=== PATIENT | female | born 1980 | race African-American/Black ===

== ENCOUNTER 2018-08-31 17:19 | Emergency (ER) | payer OTHER, MEDICAID ==
[2018-08-31] MEDS ORDERED: ACETAMINOPHEN 325 MG TABLET PO ONE (18:16)
[2018-08-31] MEDS ORDERED: LIDOCAINE 5% (700 MG) TRANSDERMAL ADH..PATCH TP ONE (18:16)
[2018-08-31] MEDS ORDERED: IBUPROFEN 600 MG TABLET PO ONE (18:16)
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
[2018-08-31] MEDS ORDERED: METHOCARBAMOL 500 MG TABLET PO ONE (19:57)
[2018-08-31 20:21] VITALS: BP 132/81
== END 2018-08-31 20:21 | disposition home or self-care (01) ==
LOC: ER 17:19
DX: M25.512 Pain in left shoulder (principal); M25.511 Pain in right shoulder; M54.6 Pain in thoracic spine; V87.7XXA Person injured in collision between other specified motor vehicles (traffic), initial encounter; J45.909 Unspecified asthma, uncomplicated
CPT/HCPCS: 99283

== ENCOUNTER 2019-05-11 23:51 | Emergency (ER) | payer MEDICAID, OTHER ==
--- NOTE | 2019-05-12 00:56 | ER Document Report ---
ED Extremity Problem, Lower - General Chief Complaint: Knee Injury Stated Complaint: FELL KNEE PAIN Time Seen by Provider: 05/12/19 00:55 Primary Care Provider: MEIR SHEN MD [Primary Care Provider] - Follow up as needed TRAVEL OUTSIDE OF THE [place] IN LAST 30 DAYS: No - HPI Notes: 39-year-old female to the emergency department with complaints of fall and knee injury that occurred just prior to arrival. She states that she was leaving her family's home when she fell into a hole in the yard and fell forward striking her right knee on a downed branch from a tree. She states that she had immediate pain. She states that she tried to take some Motrin but without any relief. She states she took 800 mg of the Motrin. She states that she did not injure any other joints and did not strike her head. She did not have loss of consciousness. She did not have any vomiting, blurry vision, or any other injuries. She is not sure exactly how she came down onto the knee. She states that she has a lot of pain when she flexes the knee and anytime she tries to bear weight. - Related Data Allergies/Adverse Reactions: No Known Allergies Allergy (Verified 08/31/18 17:21) Past Medical History - General Information source: Patient - Social History Smoking Status: Never Smoker Frequency of alcohol use: None Drug Abuse: None Family History: Reviewed & Not Pertinent Pulmonary Medical History: Reports: Hx Asthma Denies: Hx Tuberculosis Renal/ Medical History: Denies: Hx Peritoneal Dialysis Psychiatric Medical History: Reports: Hx Anxiety, Hx Depression Infectious Medical History: Reports: Hx MRSA Past Surgical History: Reports: Hx Cholecystectomy, Hx Orthopedic Surgery - right knee - Immunizations Immunizations up to date: Yes Hx Diphtheria, Pertussis, Tetanus Vaccination: Yes Review of Systems - Review of Systems Constitutional: denies: Chills, Fever EENT: No symptoms reported Cardiovascular: denies: Chest pain, Palpitations, Orthopnea, Dyspnea, Syncope, Dizziness, Lightheaded Respiratory: denies: Cough, Short of breath Gastrointestinal: denies: Abdominal pain, Diarrhea, Nausea, Vomiting Musculoskeletal: See HPI, Joint pain, Muscle pain Skin: See HPI - Abrasion to right knee Neurological/Psychological: denies: Lost consciousness, Headaches -: Yes All other systems reviewed and negative Physical Exam - Vital signs Vitals: Temp Pulse Resp BP Pulse Ox 97.4 F 81 17 116/80 99 05/11/19 23:57 05/11/19 23:57 05/11/19 23:57 05/11/19 23:57 05/11/19 23:57 Interpretation: Normal - General General appearance: Appears well, Alert In distress: None - HEENT Head: Normocephalic, Atraumatic Eyes: Normal Pupils: PERRL - Respiratory Respiratory status: No respiratory distress Chest status: Nontender Breath sounds: Normal Chest palpation: Normal - Cardiovascular Rhythm: Regular Heart sounds: Normal auscultation Murmur: No - Extremities Knee: Tender - There is tenderness to palpation over the anterior knee joint of the right knee. There is mild and evolving ecchymosis to the knee. There is noted tenderness focally over the patella but is not high rising and there is no brenda deformity. There is a small abrasion with bleeding controlled overlying the patella. There is negative valgus and varus stress testing. There is negative anterior drawer. It is noted that during the exam patient does cry out of pain. She is nontender to palpation to the right hip and to the right ankle. DP pulses are intact and equal. Cap refill is less than 2 seconds., Abrasion, Ecchymosis - Neurological Neuro grossly intact: Yes Cognition: Normal Orientation: AAOx4 Rafy Coma Scale Eye Opening: Spontaneous Hester Coma Scale Verbal: Oriented Rafy Coma Scale Motor: Obeys Commands Rafy Coma Scale Total: 15 Speech: Normal Cranial nerves: Normal Motor strength normal: LUE, RUE, LLE, RLE Additional motor exam normals: Equal event executive. No: Pronator drift Sensory: Normal - Psychological Associated symptoms: Normal affect, Normal mood - Skin Skin Temperature: Warm Skin Moisture: Dry Skin Color: Normal Course - Re-evaluation Re-evalutation: 05/12/19 Knee X-Ray 05/12/19 00:00 IMPRESSION: 1. No acute findings. Impression: Right knee injury, right knee abrasion, patellar contusion. Noted x-ray findings. Patient does not appear to have any laxity in anterior drawer or in valgus and varus stress testing. She is unsure if she twisted down as she went into the hole. We will go ahead and immobilize the knee and placed on crutches to help with her pain. We will have her follow-up with Ortho. She agrees with the plan. Will write for small amount of pain medicine and sent home also with Motrin for anti-inflammatory and pain control as well. Patient agrees with the plan. - Vital Signs Vital signs: Temp Pulse Resp BP Pulse Ox 97.4 F 81 17 116/80 99 05/11/19 23:57 05/11/19 23:57 05/11/19 23:57 05/11/19 23:57 05/11/19 23:57 - Diagnostic Test Radiology reviewed: Image reviewed, Reports reviewed Discharge - Discharge Clinical Impression: Fall Qualifiers: Encounter type: initial encounter Qualified Code(s): W19.XXXA - Unspecified fall, initial encounter Patellar contusion Qualifiers: Encounter type: initial encounter Laterality: right Qualified Code(s): S80.01XA - Contusion of right knee, initial encounter Knee injury Qualifiers: Encounter type: initial encounter Laterality: right Qualified Code(s): S89.91XA - Unspecified injury of right lower leg, initial encounter Condition: Stable Disposition: HOME, SELF-CARE Instructions: Use of Crutches ([facility]), Ice & Elevation ([facility]) Additional Instructions: REST, ICE, ELEVATE THE KNEE. FOLLOW UP WITH PRIMARY CARE AND ORTHOPEDIST. RETURN IF WORSENING PAIN, FEVERS< REDNESS, SIGNIFICANT SWELLING TO THE KNEE. KEEP WOUND CLEAN AND DRY. Prescriptions: Ibuprofen [Motrin 800 mg Tablet] 800 mg PO Q8H PRN #30 tab PRN Reason: Hydrocodone/Acetaminophen [Chapman 5-325 mg Tablet] 1 tab PO Q6H #9 tablet Referrals: MEIR SHEN MD [Primary Care Provider] - Follow up in 1 week SYLVIA SIMMONS JR, DO [ACTIVE PROVISIONAL STAFF] - Follow up in 1 week
[2019-05-12] MEDS ORDERED: HYDROCODONE/ACETAMINOPHEN 5-325 MG TABLET PO ONE (01:06)
[2019-05-12] MEDS ORDERED: DIPH/PERTUSS(ACELL)/TETANUS VAC/PF 0.5 ML SYR (>=10YO) IM ONE (01:06)
--- NOTE | 2019-05-12 01:06 | RADIOLOGY REPORT (SQ) ---
EXAM DESCRIPTION: Right knee [facility]Lex: XR KNEE 4 OR MORE VIEWS Views: 4 CLINICAL HISTORY: 39 years Female, tripped and fell onto right knee, severe pain COMPARISON: 10/08/2014 FINDINGS: Negative for acute fracture, dislocation, or radiopaque foreign body. No joint effusion. No lytic changes or periosteal reaction. IMPRESSION: 1. No acute findings.
[2019-05-12 02:07] VITALS: BP 112/76
== END 2019-05-12 01:45 | disposition home or self-care (01) ==
LOC: ER 23:51
DX: S80.01XA Contusion of right knee, initial encounter (principal); S89.91XA Unspecified injury of right lower leg, initial encounter; M25.561 Pain in right knee; W19.XXXA Unspecified fall, initial encounter; J45.909 Unspecified asthma, uncomplicated
CPT/HCPCS: 99283; 90471; 73564; 90715; L1830